=== PATIENT | female | born 1985 | race American Indian/Alaskan Native ===

== ENCOUNTER 2025-02-13 09:59 | Emergency (ER) | payer OTHER ==
[~2025-02-13] VITALS: Ht 170.2 cm; Wt 93.8 kg
--- NOTE | 2025-02-13 10:08 | Physician Documentation ---
History of Present Illness ~ Chief Complaint: Hip pain Stated Complaint: HIP PAIN Time Seen by MD: 10:22 HPI 39 y Female presents to the ED with a right hip pain no injury. The last three weeks her pain has been worse than normal she says she has been seen for this at [facility] and [facility] was diagnosed with bursitis ,no history of avascular necrosis Day of Onset: Feb 13, 2025 Medication Reconciliation Allergies: Coded Allergies: No Known Allergies (Unverified , 02/13/25) Physical Exam Physical Exam General: Alert, no apparent distress. HEENT: PERRL, EOMI, no injection, moist mucous membranes. Neck: Full range of motion. Extremities: Pain with ambulation pain with range of motion on no point tenderness Neurologic: Oriented x4. Psychiatric: Normal mood and affect. Skin: Normal color, warm and dry. No edema, no ecchymosis. Progress Results/Orders Results/Orders Orders - ROBBY NG RUBBER PROCESS HAND Hip Unilateral 2 Views (02/13/25 10:23) Ct Pelvis (02/13/25 12:19) Completed Orders - ROBBY NG RUBBER PROCESS HAND Ketorolac Trometh 30mg/Ml Vial (Toradol (02/13/25 10:25) Hip Unilateral 2 Views (02/13/25 10:23) Ct Pelvis (02/13/25 12:19) Medications Received in ER Medications (Trade) Dose Ordered Sig/Kirit Route PRN Reason Start Time Stop Time Status Last Admin Dose Admin (Toradol inj. 30mg/ml) 30 mg ONCE ONCE IM 02/13/25 10:25 02/13/25 10:26 DC 02/13/25 10:41 30 MG Vital Signs 02/13/25 02/13/25 10:06 13:17 Temp 97.8 97.8 Pulse 91 84 Resp 18 18 B/P (MAP) 138/61 128/78 Pulse Ox 98 99 Medical Decision Making Findings I was initially concerned for a avascular necrosis with this patient however her CAT scan came back very reassuring. At this stage in her treatment plan I recommend that physical therapy be pursued for symptomatic treatment.. Differential Dx:Considerations: Include: Avascular necrosis, Arthritis, Arthritis-Rheumatoid, Arthritis-Septic, Bursitis, Contusion, Dislocation, DJD, Fracture-femur, Fracture-hip, Fracture-open, Fracture-pelvis, Gout, Hernia, Chov-Pvofx-ftdsrcc dz., Neurovascular injury, Slip capital femoral epip, Sprain, Transient synovitis, Other Departure Disposition: HOME / SELF CARE / HOMELESS Impression: Primary Impression: Hip pain Condition: Stable Discharge Instructions: Hip Pain Referrals: NO PRIMARY CARE PROVIDER (PCP) Signature Scribe Signature: f Attestation: The note accurately reflects work and decisions made by me.Robby Campos NP 02/13/25 16:16 ROBBY NG NP Feb 13, 2025 10:07
[2025-02-13] MEDS: ketorolac trometh 30MG/ML vial 30 MG/ML VIAL IM ONE (10:41)
--- NOTE | 2025-02-13 12:40 | RADIOLOGY REPORT ---
CLINICAL INFORMATION: Right hip pain. TECHNIQUE: Axial CT images of the pelvis were obtained without IV contrast. Coronal and sagittal refo rmatted images were obtained, reviewed, and stored. All CT scans at this medical facility are perfor med using dose modulation techniques as appropriate to a performed exam including the following: Auto mated exposure control was utilized; adjustment of the MA and/or KV according to patient size; and us e of iterative reconstruction technique. CTDIvol = 27.72 mGy DLP = 1072.s 5 5 mGy-cm COMPARISON: None FINDINGS: No evidence of acute fracture. No significant arthritic changes are seen. Small sclerotic l esion in the left sacral ala, likely bone island. Likely small bone island in the left acetabulum. No significant soft tissue abnormality identified. Visualized musculature Appears Unremarkable. IMPRESSION: 1. No evidence of acute bony abnormality. 2. Nonacute findings as described above.
--- NOTE | 2025-02-13 12:46 | RADIOLOGY REPORT ---
CLINICAL INDICATION: bursitis ; pain TECHNIQUE: 1 radiographic views of the pelvis and 4 views of the right hip were obtained. Comparison: None FINDINGS/IMPRESSION: There is no evidence of acute fracture or dislocation. The visualized joint space is well maintained. The alignment is anatomical. There is no radiopaque foreign body.
[2025-02-13 13:17] VITALS: BP 128/78; PULSE 84; RESP 18; TEMP 97.8; O2SAT 99
== END 2025-02-13 13:18 | disposition home or self-care (01) ==
LOC: ER 10:00
DX: M25.551 Pain in right hip (principal)
CPT/HCPCS: 72192; 73502; 96372; 99285; J1885